=== PATIENT | female | born 1980 | race Caucasian/White ===

== ENCOUNTER 2019-11-20 01:40 | Inpatient (IN) | payer MEDICAID ==
[~2019-11-20] VITALS: Ht 157.5 cm; Wt 66.7 kg
[2019-11-20] MEDS ORDERED: ALPRAZOLAM 0.5 MG TABLET PO ONE (04:15)
[2019-11-20] MEDS ORDERED: KETOROLAC 60MG/2ML VIAL IM ONE (04:15)
[2019-11-20 06:13] LABS: BASOPHILS % 0.5 % (0.0-2.0); EOSINOPHILS % 2.4 % (0.0-5.0); HEMATOCRIT. 40.8 % (36.0-48.0); HEMOGLOBIN. 14.1 g/dL (12.0-16.0); LYMPHOCYTES % 23.5 % (20.0-50.0); MEAN CORPUSCULAR VOLUME 89.8 fL (81.0-99.0); MONOCYTES % 10.3 % (2.0-8.0); NEUTROPHILS % 63.3 % (40.0-76.0); PLATELET 370 x1000/uL (130-400); RED BLOOD CELL COUNT 4.55 mill/uL (4.2-5.4); RED CELL DISTRIBUTION WIDTH 14.5 % (11.6-14.6)
[2019-11-20 06:19] LABS: CHLORIDE 105 mEq/L (98-107)
[2019-11-20 06:24] LABS: INR 1.2; PARTIAL THROMBOPLASTIN TIME 27.5 sec (23.4-31.0); PROTHROMBIN TIME 12.5 sec (9.6-11.0)
[2019-11-20] MEDS ORDERED: NITROGLYCERIN 0.4MG TABLET SL SL PRN (07:30)
[2019-11-20] MEDS ORDERED: IPRATROPIUM/ALBUTEROL 0.5-3(2.5)MG/3ML NEB ORI PRN (07:30)
[2019-11-20] MEDS ORDERED: ONDANSETRON HCL 4MG/2ML INJ IV PRN (07:30)
[2019-11-20] MEDS ORDERED: LORAZEPAM 0.5MG TABLET PO PRN (07:30)
[2019-11-20] MEDS ORDERED: GUAIFENESIN 200MG/10ML SUGAR FREE UDC PO PRN (07:30)
[2019-11-20] MEDS ORDERED: MAGNESIUM/ALUMINUM HYDROXIDE/SIMETHICONE 30ML UDC PO PRN (07:30)
[2019-11-20] MEDS ORDERED: KCL 20MEQ/100ML PREMIX 100 ML IV ONE (07:30)
[2019-11-20] MEDS ORDERED: ACETAMINOPHEN 325MG TABLET PO PRN ×2 (07:30)
[2019-11-20] MEDS ORDERED: POTASSIUM CHLORIDE 20MEQ TABLET SR PO ONE (07:30)
[2019-11-20] MEDS ORDERED: CLONIDINE 0.1MG TABLET PO PRN (07:30)
[2019-11-20] MEDS ORDERED: DOCUSATE SODIUM 100MG CAPSULE PO PRN (07:30)
[2019-11-20 07:49] LABS: ETHANOL BLOOD < 10 mg/dL
[2019-11-20] MEDS: SODIUM CHL 0.9% + KCL 20MEQ/L 1,000 ML IV SCH ×2 (08:09→16:33)
[2019-11-20] MEDS: FAMOTIDINE 20MG TABLET PO SCH ×2 (13:16→21:27)
[2019-11-20 14:45] VITALS: BP 118/71
[2019-11-20] MEDS ORDERED: POTASSIUM CHLORIDE 20MEQ/PACKET PO NR (15:15)
[2019-11-20 16:00] VITALS: BP 118/71
[2019-11-20] MEDS: KETOROLAC 15MG/ML VIAL IV PRN (16:54)
[2019-11-20] MEDS ORDERED: DIVA125T2 MT (17:41)
[2019-11-20] MEDS ORDERED: RISP0.2514 MT (17:41)
[2019-11-20] MEDS ORDERED: LORA-249 MT (17:41)
[2019-11-20 20:00] VITALS: BP 101/61
[2019-11-20] MEDS ORDERED: ZOLPIDEM TARTRATE 5MG TABLET PO PRN (21:00)
[2019-11-21] VITALS: BP 103/67
[2019-11-21 04:00] VITALS: BP 107/69
[2019-11-21] MEDS: SODIUM CHL 0.9% + KCL 20MEQ/L 1,000 ML IV SCH (05:18)
[2019-11-21] MEDS: KETOROLAC 15MG/ML VIAL IV PRN (05:51)
[2019-11-21 07:21] LABS: BASOPHILS % 0.4 % (0.0-2.0); EOSINOPHILS % 4.6 % (0.0-5.0); HEMOGLOBIN. 12.8 g/dL (12.0-16.0); LYMPHOCYTES % 24.4 % (20.0-50.0); MEAN CORPUSCULAR HEMOGLOBIN 31.2 pg (28.0-32.0); MEAN CORPUSCULAR VOLUME 92.5 fL (81.0-99.0); MEAN PLATELET VOLUME 7.7 fl (7.4-10.4); MONOCYTES % 9.1 % (2.0-8.0); NEUTROPHILS % 61.5 % (40.0-76.0); PLATELET 327 x1000/uL (130-400); RED CELL DISTRIBUTION WIDTH 14.3 % (11.6-14.6)
[2019-11-21 07:35] LABS: CHLORIDE 112 mEq/L (98-107)
[2019-11-21 08:00] VITALS: BP 100/55
[2019-11-21] MEDS: FAMOTIDINE 20MG TABLET PO SCH (09:27)
[2019-11-21 12:00] VITALS: BP 100/60
[2019-11-21 16:00] VITALS: BP 98/62
[2019-11-21 17:42] VITALS: BP 98/62
== END 2019-11-21 18:47 | disposition home or self-care (01) | DRG 385 ==
LOC: ER 01:40 → 6EST 06:02 → ENRESERV 13:51
PROVIDERS: ADMIT Internal Medicine; ATTEND Internal Medicine
DX: N64.89 Other specified disorders of breast (principal); E87.6 Hypokalemia; F41.9 Anxiety disorder, unspecified; Z98.82 Breast implant status; Z79.899 Other long term (current) drug therapy
CPT/HCPCS: 36415; 73110; 76641; 80048; 80053; 80076; 80320; 83036; 83735; 84100; 85025; 93005; 93970; 99285; J1885; J3480; G0480